=== PATIENT | female | born 1990 | race Caucasian/White ===

== ENCOUNTER 2022-12-20 17:56 | Emergency (ER) | payer OTHER, MEDICAID ==
[~2022-12-20] VITALS: Ht 157.5 cm; Wt 54.4 kg
== END 2022-12-20 20:15 | disposition home or self-care (01) ==
LOC: ED 17:56
DX: S09.90XA Unspecified injury of head, initial encounter (principal); M54.2 Cervicalgia; M54.6 Pain in thoracic spine; R07.89 Other chest pain; V00.131A Fall from skateboard, initial encounter
CPT/HCPCS: 36415; 70450; 71260; 72125; 72128; 72131; 74177; 80053; 83690; 84702; 85025; 86850; 86900; 86901; 99284-25; G0480; J2405; J7121; Q9967